=== PATIENT | male | born 1995 | race Caucasian/White ===

== ENCOUNTER → 2017-01-25 | Outpatient (CLI) | payer BC ==
[~2017-01-25] MED LIST: MULT-506 PO
--- NOTE | 2017-01-25 15:48 | MAMMOGRAPHY REPORT ---
MALE UNILATERAL LEFT DIGITAL DIAGNOSTIC MAMMOGRAM WITH CAD AND TARGETED LEFT ULTRASOUND: 01/25/2017 CLINICAL HISTORY: The patient reports a palpable lump in his left breast under his left nipple since October. It was initially painful when touched, but is no longer painful. He had his left nipple pierc ed in September. TECHNIQUE: Current study was also evaluated with a Computer Aided Detection (CAD) system. Left CC a nd MLO views were obtained. COMPARISON: No prior exams were available for comparison. BREAST COMPOSITION: The tissue of the left breast is predominantly fatty. FINDINGS: There is moderate fibroglandular tissue seen within the left subareolar breast, consistent with gynecomastia. No suspicious masses, calcifications, or areas of architectural distortion are no moni within the left breast. Targeted ultrasound was performed of the area of the palpable lump pointed out by the patient, in the left subareolar breast. There is mixed echogenicity tissue in the left subareolar breast, which has the ultrasound appearance of gynecomastia. No suspicious masses or other suspicious sonographic abn ormalities are evident. IMPRESSION: ACR BI-RADS CATEGORY 2: BENIGN, TARGETED ULTRASOUND ACR BI-RADS CATEGORY 2: BENIGN The palpable lump in the left subareolar breast corresponds with benign gynecomastia. There is no ma mmographic or targeted sonographic evidence of malignancy. Recommend clinical follow-up. The patient has been verbally notified of the results. Approximately 10% of breast cancers are not detected with mammography. A negative mammographic report should not delay biopsy if a clinically suggestive mass is present. Rhoda Tobias M.D. ah/:01/25/2017 14:17:31 Urogynaecologist: Michelle VORA)(Elizabeth), [facility] letter sent: Normal 1/2 BI-RADS Code: ACR BI-RADS Category 2: Benign Ultrasound BI-RADS: ACR BI-RADS Category 2: Benign
== END | disposition home or self-care (01) ==
LOC: C.MAMM 13:39
PROVIDERS: ATTEND Surgery
DX: N63 Unspecified lump in breast (principal)